=== PATIENT | male | born 1955 | race Hispanic/Latino ===

== ENCOUNTER 2017-02-17 19:03 | Emergency (ER) | payer OTHER ==
[2017-02-17] MEDS ORDERED: Ondansetron HCl/PF 4 MG/2 ML Vial ONE ×2 (19:09→19:43)
[2017-02-17] MEDS ORDERED: Sodium Chloride 0.9% 1,000 ML ONE (19:09)
[2017-02-17 19:34] LABS: #Basophils 0.2 thou/uL (0.0-0.2); #Eosinphils 0.4 thou/uL (0.0-0.7); #Lymphocytes 4.1 thou/uL (1.20-3.40); #Monocytes 1.2 thou/uL (0.11-0.59); #Neutrophils 7.8 thou/uL (1.40-6.50); %Basophils 1.4 % (0.0-1.0); %Eosinophils 3.3 % (0.0-10.0); %Lymphocytes 29.8 % (21.0-51.0); %Monocytes 8.6 % (0.0-10.0); Hemoglobin 16.9 g/dL (14.0-18.0); Mean Corpuscular HGB CONC 34.4 g/dL (32.0-36.0); Mean Corpuscular Hemoglobin 31.4 pg (27.0-31.0); Mean Corpuscular Volume 91.2 fl (80.0-94.0); Mean Platelet Volume 8.4 fL (7.4-10.4); Platelet Count 232 thou/uL (130-400); RBC Distribution Width 11.9 % (11.5-14.5); Red Blood Cell (RBC) Count 5.39 mill/uL (4.70-6.10); White Blood Cell (WBC) Count 13.8 thou/uL (4.8-10.8)
[2017-02-17 19:49] LABS: ALT (SGPT) 77 U/L (8-55); AST (SGOT) 63 U/L (5-34); Albumin 4.1 g/dL (3.5-5.0); Alkaline Phosphatase 94 U/L (40-150); Anion Gap 16 mmol/L (10-20); BUN (Urea Nitrogen) 12 mg/dL (8.4-25.7); Bilirubin, Total 0.3 mg/dL (0.2-1.2); CK (CPK) 110 U/L (30-200); Calc. Creatinine Clearance 0 mL/min (70-130); Calcium 9.2 mg/dL (7.8-10.44); Carbon Dioxide 22 mmol/L (22-29); Chloride 106 mmol/L (98-107); Estimated GFR-MDRD 74; Globulin 3.4 g/dL (2.4-3.5); Glucose 131 mg/dL (70-105); Lipase 21 U/L (8-78); Protein, Total 7.5 g/dL (6.0-8.3); Sodium 140 mmol/L (136-145)
[2017-02-17 19:50] LABS: CKMB 1.9 ng/mL (0-6.6); Troponin I 0.019 ng/mL (< 0.028)
--- NOTE | 2017-02-17 19:51 | RAD ---
PORTABLE SEMI UPRIGHT CHEST RADIOGRAPH: Date: 02-17-17 Comparison: None. History: Shortness of breath, vertigo, dizzy. FINDINGS: Heart and mediastinal contours grossly unremarkable. Lungs appear clear. IMPRESSION: No acute findings. POS: [facility]
[2017-02-17] MEDS ORDERED: Metoclopramide HCl 10 MG/2 ML VIAL ONE (20:08)
--- NOTE | 2017-02-17 20:52 | CT ---
HEAD CT WITHOUT CONTRAST: Date: 02-17-17 Comparison: None. History: Dizziness, nausea. Technique: Serial axial CT imaging at 5 mm intervals from vertex through skull base without contrast . FINDINGS: The imaged paranasal sinuses and mastoid air cells are well aerated. There is no displaced calvarial fracture, intracranial hemorrhage, midline shift, or mass effect. IMPRESSION: Grossly unremarkable head CT. POS: [facility]
[2017-02-17] MEDS ORDERED: diphenhydrAMINE HCl 50 MG/ML 1 ML VIAL ONE (20:54)
== END 2017-02-17 21:09 | disposition home or self-care (01) ==
LOC: NAV ERS 19:03
DX: H83.02 Labyrinthitis, left ear (principal)
CPT/HCPCS: 36416; 70450; 71010; 80053; 82550; 82553; 83690; 84484; 85025; 85379; 93005; 94760; 96361; 96374; 96375; J1200; J2405; J2765; J7050

== ENCOUNTER 2021-11-28 | Outpatient (CLI) | payer OTHER, SELFPAY | END 2021-11-28 09:18 | disposition home or self-care (01) | DX: S49.91XA Unspecified injury of right shoulder and upper arm, initial encounter (principal) ==

== ENCOUNTER 2022-03-01 09:31 | Outpatient (CLI) | payer MEDICARE | END 2022-03-01 09:32 | disposition home or self-care (01) | LOC: NAV RAD 09:31 | PROVIDERS: ATTEND Family Medicine | DX: M54.50 Low back pain, unspecified (principal) | CPT/HCPCS: 72100 ==

== ENCOUNTER 2022-10-03 08:32 | Outpatient (CLI) | payer OTHER | END 2022-10-03 08:33 | disposition home or self-care (01) | LOC: NAV RAD 08:32 | PROVIDERS: ATTEND Neurological Surgery | DX: M47.26 Other spondylosis with radiculopathy, lumbar region (principal); M54.50 Low back pain, unspecified; M51.16 Intervertebral disc disorders with radiculopathy, lumbar region; M51.37 Other intervertebral disc degeneration, lumbosacral region; M46.06 Spinal enthesopathy, lumbar region; M43.8X6 Other specified deforming dorsopathies, lumbar region | CPT/HCPCS: 72120 ==

== ENCOUNTER 2023-02-19 10:30 | Outpatient (CLI) | payer OTHER | END 2023-02-19 10:31 | disposition home or self-care (01) | LOC: NAV RAD 10:30 | PROVIDERS: ATTEND Neurological Surgery | DX: M47.26 Other spondylosis with radiculopathy, lumbar region (principal); Z98.890 Other specified postprocedural states | CPT/HCPCS: 72100 ==